=== PATIENT | female | born 1995 | race Caucasian/White ===

== ENCOUNTER 2017-08-30 11:05 | Emergency (ER) | payer OTHER ==
[~2017-08-30] VITALS: Ht 152.4 cm; Wt 49.0 kg
[2017-08-30] MEDS ORDERED: ZOLOFT25 MG (11:55)
== END 2017-08-30 12:14 | disposition home or self-care (01) ==
LOC: ER 11:05
DX: J00 Acute nasopharyngitis [common cold] (principal)

== ENCOUNTER 2021-05-22 16:43 | Emergency (ER) | payer OTHER ==
[~2021-05-22] VITALS: Ht 152.4 cm; Wt 43.1 kg
[~2021-05-22 16:43] MED LIST: ZOLOFT25 MG
== END 2021-05-22 19:43 | disposition home or self-care (01) ==
LOC: ER 16:43
DX: J32.8 Other chronic sinusitis (principal)